=== PATIENT | female | born 1980 | race Caucasian/White ===

== ENCOUNTER 2020-04-04 19:27 | Emergency (ER) | payer SELFPAY ==
[2020-04-04 20:00] VITALS: BP 127/85; PULSE 102; RESP 15; O2SAT 99
--- NOTE | 2020-04-04 20:43 | W.ED.GENADLT ---
HPI - General Adult General: Chief complaint: General Medical Stated complaint: SORES Time Seen by Provider: 04/04/20 20:24 History of Present Illness: HPI narrative: Patient state hotel 3 weeks ago developed sores now they are scratch a lot abdomen said there is seen in what appear to be scabies coming out and he father looked in her microscope MD complaint: Sores Onset (ago): day(s) Associated symptoms: Deny chest pain, dyspnea, headache(s), nausea, rash or vomiting Review of Systems Const: Denies: fever(s), chills or body aches Eyes: Denies: change in vision or blurry vision ENMT: Denies: throat pain or nasal congestion Card: Denies: chest pain or dyspnea on exertion Resp: Denies: dyspnea, productive cough or non-productive cough GI: Denies: abdominal pain, nausea or vomiting Musc: Denies: extremity pain Skin/Breast: Reports: other (Sores scattered about arms hands legs); Denies: rash Neuro: Denies: headache(s) Psych: Denies: anxiety or depression Chau/Lymph: Denies: easy bruising [facility] ED Female Reproductive History: Date of last menstrual period: 03/15/20 Physical Exam Const: COMMON NORMALS: no acute distress, average body habitus and patient oriented x3 HENMT: COMMON NORMALS: normocephalic HEAD & SCALP: normal to inspection and normocephalic FACE & SINUS: normal facial exam Eye: COMMON NORMALS: conjunctivae normal GENERAL EYE: appearance normal, both eyes and all related structures CONJUNCTIVA: Yes conjunctivae normal Neck/C-Spine: COMMON NORMALS: no JVD Chest: COMMONS NORMALS: normal inspection of the chest Resp: COMMON NORMALS: normal respiratory effort and clear to auscultation bilaterally AUSCULTATION: clear to auscultation bilaterally Cardio: COMMON NORMALS: no JVD, regular rate and regular rhythm RATE: regular rate RHYTHM: regular rhythm GI: COMMON NORMALS: Normal to inspection, nondistended, normoactive bowel sounds present Extremity: COMMON NORMALS: normal to inspection and full ROM Neuro: COMMON NORMALS: patient oriented x3 Skin: NARRATIVE SKIN EXAM: Patient has open macular areas apparently he is dug in mechanically there scattered about shoulders arms hands Course Vital Signs: Vital signs: Vital Signs Pulse Rate 102 H 04/04/20 20:00 Respiratory Rate 15 04/04/20 20:00 Blood Pressure 127/85 04/04/20 20:00 Pulse Oximetry 99 04/04/20 20:00 Discharge Plan Discharge Patient Disposition: Home Clinical Impression: Scabies Condition: Stable Prescriptions: New permethrin 5 % cream 1 applic TOPICAL Q14D Qty: 60 RF: 0 albendazole 200 mg tablet 400 mg PO DAILY 7 Days Qty: 2 RF: 0 Discharge Orders: Discharge Order (Routine); Ordered 04/04/20 Ordered By: Rasheed Alanis Referrals: Juan M Gray MD [Primary Care Provider] - Discharge Diet: Usual diet Discharge Activity: Resume usual activity Patient Instructions: Scabies (ED) Coding Level of Care Code ED Inspector [employer] for Robert Ohara
[2020-04-04 20:57] VITALS: PULSE 68; RESP 16; O2SAT 98
== END 2020-04-04 20:58 | disposition home or self-care (01) ==
LOC: ER 20:38
PROVIDERS: Emergency Provider Nurse Practitioner Family; PCP Family Medicine
DX: B86 Scabies (principal)
CPT/HCPCS: 12345; 99282

== ENCOUNTER → 2023-02-09 11:21 | Outpatient (BNVA) | payer BC, SELFPAY | PROVIDERS: PCP Nurse Practitioner Family; Visit Provider Nurse Practitioner Family | DX: M25.50 Pain in unspecified joint (principal); R63.1 Polydipsia; G51.0 Bell's palsy | CPT/HCPCS: 80053; 85025; 86038; 86140; 86431 ==

== ENCOUNTER 2024-06-26 17:48 | Emergency (ER) | payer BC, SELFPAY ==
[2024-06-26 17:50] VITALS: BP 142/83; PULSE 103; RESP 18; TEMP 36.7; O2SAT 96; BMI 21.5
[2024-06-26] MEDS: dexamethasone 10 mg/mL INJ IM (19:32)
[2024-06-26] MEDS: sulfamethoxazole-trimeth DS 160-800 mg Tablet 1 TAB PO (19:33)
[2024-06-26 19:42] VITALS: BP 149/78; PULSE 98; O2SAT 96
--- NOTE | 2024-06-26 19:44 | ED_ITS ---
HPI - Skin/Abscess/Foreign Bdy General: Chief complaint: Skin/Abscess/Foreign Body Stated complaint: whole body rash Time Seen by Provider: 06/26/24 17:57 Source: patient Mode of arrival: ambulatory Limitations: no limitations History of Present Illness: Patient is a 43-year-old female presenting to the emergency department with rash to face and bilateral upper extremities that she has noticed over the past few days. Not overtly itchy or painful, but she is concerned due to the amount of spreading. She is reporting that the rash is papular, no other systemic symptoms reported. No shortness of breath, chest pain, or other symptoms. Has not taken anything for his symptoms. MD complaint: rash Onset (ago): day(s) Tetanus up to date: yes Location: face, LUE and RUE Relieving factors: none Exacerbating factors: none Context: none Associated symptoms: Deny chills, fever(s), nausea or vomiting Related Data Previous Rx's Medication Instructions Recorded mupirocin 2 % topical ointment 1 applic topical BID #15 grams 06/26/24 prednisone 20 mg tablet 60 mg (3 x 20 mg) PO ONCE 5 days 06/26/24 #15 tabs sulfamethoxazole 800 1 tab PO BID 7 days #14 tabs 06/26/24 mg-trimethoprim 160 mg tablet (Bactrim DS) Allergies Allergy/AdvReac Type Severity Reaction Status Date / Time No Known Allergies Allergy Verified 02/09/23 10:43 Review of Systems General: Reports: 10 or more systems reviewed and unremarkable except in HPI and below Const: Denies: fever(s) or chills Card: Denies: chest pain Resp: Denies: dyspnea GI: Denies: abdominal pain, nausea, vomiting or diarrhea Musc: Denies: extremity pain or joint pain Skin/Breast: Reports: rash; Denies: skin pain, skin tenderness or new lesions Neuro: Denies: headache(s) PFSH ED PFSH: Family History Mother Rheumatoid arthritis Lung disease Hyperlipidemia Hypertension Cancer Father Parkinson disease Lung disease Denies family history of Diabetes CAD (coronary artery disease) Chronic kidney disease (CKD) Stroke Social History Smoking and tobacco/nicotine status: current every day tobacco/nicotine user cigarettes [ Other cigarette details: plus nicotine pouches] Quit status (tobacco/nicotine): has tried quititng Alcohol intake: former Substance/Drug Use: never Adopted: No Household members: spouse Housing: House Marital status: service: No Current occupational status: unemployed Physical Exam Const: COMMON NORMALS: no acute distress, average body habitus, patient oriented x3, no limitations, healthy appearing, alert and well nourished HENMT: COMMON NORMALS: normocephalic and atraumatic HEAD & SCALP: normocephalic and atraumatic Neck/C-Spine: COMMON NORMALS: full ROM, no lymphadenopathy, supple and no meningeal signs Resp: COMMON NORMALS: normal respiratory effort, No use of accessory muscles and clear to auscultation bilaterally AUSCULTATION: clear to auscultation bilaterally Cardio: COMMON NORMALS: regular rate and regular rhythm RATE: regular rate RHYTHM: regular rhythm Extremity: COMMON NORMALS: full ROM and capillary refill normal Neuro: COMMON NORMALS: patient oriented x3 SENSORIUM/ORIENTATION: Yes alert MENINGEAL SIGNS: Yes no meningeal signs Skin: COMMON NORMALS: turgor normal NARRATIVE SKIN EXAM: Papular rash to bilateral upper extremities, and face. Does not appear pruritic. No active bleeding or oozing. GENERAL SKIN EXAM: turgor normal Course Vital Signs: Vital signs: Vital Signs Temperature 98.0 F 06/26/24 17:50 Pulse Rate 98 06/26/24 19:42 Respiratory Rate 18 06/26/24 17:50 Blood Pressure 149/78 06/26/24 19:42 Pulse Oximetry 96 06/26/24 19:42 Oxygen Delivery Me thod Room Air 06/26/24 17:50 MDM - Skin/Abscess/Foreign Bdy Medicial Decision Making Unknown the etiology of this rash, does not appear to be a contact dermatitis and certainly does not appear to be a scabies rash. This could potentially be a drug rash, will refer to dermatology, however prior to this we will try to treat with steroids and antibiotic therapy. All other questions and concerns addressed. There were no systemic physical exam findings or symptoms to report that would warrant further workup here. No radiology studies performed this visit Discharge Plan Discharge Patient Disposition: Home Clinical Impression: Rash Condition: Stable Prescriptions: New prednisone 20 mg tablet 60 mg PO ONCE 5 Days Qty: 15 0RF sulfamethoxazole-trimethoprim [Bactrim DS] 800-160 mg tablet 1 tab PO BID 7 Days Qty: 14 0RF mupirocin 2 % ointment 1 applic topical BID Qty: 15 0RF Discharge Orders: Discharge ED (Routine); Ordered 06/26/24 Ordered By: Francis Silva Referrals: Yolis Rowe FNP [Primary Care Provider] - Activity Restrictions/Additional Instructions: Follow-up with dermatology. Take Bactrim and apply bacitracin as prescribed. Also take prednisone. Return with any new or worsening. Coding Level of Care Code ED Construction Equipment Operator for Robert Ohara
--- NOTE | 2024-06-27 11:42 | DCPLANNER ---
messaged dermatology for er f/u
== END 2024-06-26 19:47 | disposition home or self-care (01) ==
PROVIDERS: Emergency Provider Physician Assistant; PCP Nurse Practitioner Family
DX: R21 Rash and other nonspecific skin eruption (principal)
CPT/HCPCS: 96372; 99284; J1100

== ENCOUNTER 2025-01-04 19:48 | Emergency (ER) | payer MEDICAID, SELFPAY ==
[2025-01-04 19:57] VITALS: BP 149/87; PULSE 91; RESP 14; TEMP 36.7; O2SAT 100
--- NOTE | 2025-01-04 20:40 | ED_ITS ---
HPI - Skin/Abscess/Foreign Bdy General: Chief complaint: Skin/Abscess/Foreign Body Stated complaint: Rash Chest Face arms ands hands Time Seen by Provider: 01/04/25 19:52 Source: patient Mode of arrival: ambulatory Limitations: no limitations History of Present Illness: Patient is a 44-year-old female presents emergency department complaining of a rash for a week. She states it is to her chest, face, and into her hands and she believes she has scabies. Denies any known contact exposure. States her daughter is having similar symptoms. Notes rash has been itching, not painful. No systemic symptoms reported. Vitals unremarkable at this time. MD complaint: rash Onset (ago): week(s) (1) Location: generalized Severity: mild Quality: pruritic Pain Consistency: constant Relieving factors: none Exacerbating factors: none Context: other (Daughter has same symptoms) Associated symptoms: Deny chills, fever(s), nausea or vomiting Treatments prior to arrival: none Related Data Previous Rx's ?Medication ?Instructions ?Recorded mupirocin 2 % topical ointment 1 applic topical BID #1 5 grams 06/26/24 permethrin 5 % topical cream 1 applic topical Q14D 2 d oses #60 01/04/25 grams Allergies Allergy/AdvReac Type Severity Reaction Status Date / Time No Known Allergies Allergy Verified 01/04/25 19:59 Review of Systems General: Reports: 10 or more systems reviewed and unremarkable except in HPI and below Const: Denies: fever(s) or chills Card: Denies: chest pain Resp: Denies: dyspnea GI: Denies: abdominal pain, nausea, vomiting or diarrhea Musc: Denies: extremity pain or joint pain Skin/Breast: Reports: rash and pruritus; Denies: skin pain, skin tenderness or new lesions Neuro: Denies: headache(s) PFSH ED PFSH: Family History Mother Rheumatoid arthritis Lung disease Hyperlipidemia Hypertension Cancer Father Parkinson disease Lung disease Denies family history of Diabetes CAD (coronary artery disease) Chronic kidney disease (CKD) Stroke Social History Smoking and tobacco/nicotine status: current every day tobacco/nicotine user cigarettes [ Other cigarette details: plus nicotine pouches] Quit status (tobacco/nicotine): has tried quititng Alcohol intake: former Substance/Drug Use: never Adopted: No Household members: spouse Housing: House Marital status: service: No Current occupational status: unemployed Physical Exam Const: COMMON NORMALS: no acute distress, average body habitus, patient oriented x3, no limitations, healthy appearing, alert and well nourished HENMT: COMMON NORMALS: normocephalic and atraumatic HEAD & SCALP: normocephalic and atraumatic Neck/C-Spine: COMMON NORMALS: full ROM, no lymphadenopathy, supple and no meningeal signs Resp: COMMON NORMALS: normal respiratory effort, No use of accessory muscles and clear to auscultation bilaterally AUSCULTATION: clear to auscultation bilaterally Cardio: COMMON NORMALS: regular rate and regular rhythm RATE: regular rate RHYTHM: regular rhythm Extremity: COMMON NORMALS: full ROM and capillary refill normal Neuro: COMMON NORMALS: patient oriented x3 SENSORIUM/ORIENTATION: Yes alert MENINGEAL SIGNS: Yes no meningeal signs Skin: COMMON NORMALS: no wounds and turgor normal NARRATIVE SKIN EXAM: Erythematous rash to chest and face. There is also rash to her bilateral hands, and there does appear to be linear burrowing between her digits. Evidence of lichenification from itching. GENERAL SKIN EXAM: turgor normal Course Vital Signs: Vital signs: Vital Signs Temperature 98.0 F 01/04/25 19:57 Pulse Rate 91 01/04/25 19:57 Respiratory Rate 14 01/04/25 19:57 Blood Pressure 149/87 01/04/25 19:57 Pulse Oximetry 100 01/04/25 19:57 Oxygen Delivery Me thod Room Air 01/04/25 19:57 MDM - Skin/Abscess/Foreign Bdy Medicial Decision Making Patient presenting with clinical signs and symptoms of scabies, will treat with permethrin at home. Informed her of other measures to take and discharge at this time. Return precautions given. No radiology studies performed this visit Discharge Plan Discharge Patient Disposition: Home Clinical Impression: Scabies Condition: Stable Prescriptions: New permethrin 5 % cream 1 applic topical Q14D Qty: 60 0RF Rx Instructions: apply second treatment 14 days after first treatment if live lice remain No Action mupirocin 2 % ointment 1 applic topical BID Qty: 15 0RF Discharge Orders: Discharge ED (Routine); Ordered 01/04/25 Ordered By: Francis Silva Referrals: Yolis Rowe FNP [Primary Care Provider, Family Practice] Patient Instructions: Scabies (ED) Activity Restrictions/Additional Instructions: Apply the permethrin as instructed. Please see the attached patient instructions for further education. Please wash all of your sheets and laundry in hot water. Return with any new or worsening, follow-up with regular doctor. Print Language: American Coding Level of Care Code ED Care Partner for Robert Ohara
== END 2025-01-04 20:32 | disposition home or self-care (01) ==
PROVIDERS: Emergency Provider Physician Assistant; PCP Nurse Practitioner Family
DX: B86 Scabies (principal)
CPT/HCPCS: 99283

== ENCOUNTER 2025-01-19 19:24 | Emergency (ER) | payer MEDICAID, SELFPAY ==
[2025-01-19 19:55] VITALS: BP 117/72; PULSE 93; RESP 16; TEMP 36.7; O2SAT 95
--- NOTE | 2025-01-19 20:43 | W.ED.SKABFB ---
HPI - Skin/Abscess/Foreign Bdy General: Chief complaint: Skin/Abscess/Foreign Body Stated complaint: Rash Time Seen by Provider: 01/19/25 20:01 Source: patient Mode of arrival: ambulatory Limitations: no limitations History of Present Illness: Patient is a 44-year-old female that presents to the emergency department with an itchy rash on her back, face, arms and legs. She states she was treated for scabies about 3 weeks ago but the symptoms have not resolved. Her daughter has similar symptoms. She denies any fever or chills. She denies any exposure to new soaps, detergents, fabric softeners, medications. She states nothing has been making the symptoms significantly better. She states she stopped using her regular detergent and switch to a different 1 but that has not helped the symptoms. She has some redness around some of the areas that she has scratched. She states she cannot take Benadryl because it makes her very sleepy. She presents to the emergency department for further evaluation and treatment. MD complaint: rash Associated symptoms: Deny chills, fever(s), nausea or vomiting Related Data Previous Rx's ?Medication ?Instructions ?Recorded mupirocin 2 % topical ointment 1 applic topical TID #22 grams 01/19/25 (Centany) prednisone 20 mg tablet 40 mg (2 x 20 mg) PO DAILY 5 days 01/19/25 #10 tabs Allergies Allergy/AdvReac Type Severity Reaction Status Date / Time No Known Allergies Allergy Verified 01/04/25 19:59 Review of Systems General: Reports: 10 or more systems reviewed and unremarkable except in HPI and below Const: Denies: fever(s) or chills Eyes: Denies: change in vision or eye redness ENMT: Denies: throat pain or ear or mastoid pain Card: Denies: chest pain, palpitations or edema Resp: Denies: dyspnea, productive cough, non-productive cough or wheezing GI: Denies: abdominal pain, nausea or vomiting : Denies: flank pain, difficulty voiding or dysuria Musc: Denies: neck pain, back pain or joint pain Skin/Breast: Reports: rash, pruritus, erythema and sores Neuro: Denies: headache(s), numbness in extremities or weakness in extremities Psych: Denies: anxiety Endo: Denies: polyuria or polydipsia Chau/Lymph: Denies: easy bruising, easy bleeding or petechiae All/Imm: Denies: urticaria, throat swelling or tongue swelling PFSH ED PFSH: Medical History (Updated 01/19/25 @ 21:32 by MICHELLE Dominique) History of cataract Surgical History (Updated 01/19/25 @ 21:32 by MICHELLE Dominique) Hx of cataract surgery bilateral Hx of section x2 Family History Mother Rheumatoid arthritis Lung disease Hyperlipidemia Hypertension Cancer Father Parkinson disease Lung disease Denies family history of Diabetes CAD (coronary artery disease) Chronic kidney disease (CKD) Stroke Social History Smoking and tobacco/nicotine status: current every day tobacco/nicotine user cigarettes [ Other cigarette details: plus nicotine pouches] Quit status (tobacco/nicotine): has tried quititng Alcohol intake: former Substance/Drug Use: never Adopted: No Household members: spouse Housing: House Marital status: service: No Current occupational status: unemployed Physical Exam Const: COMMON NORMALS: no acute distress and alert GENERAL APPEARANCE: cooperative ORIENTATION/CONSCIOUSNESS: Yes awake HENMT: COMMON NORMALS: normocephalic, atraumatic, external ears normal and Normal external nose present HEAD & SCALP: normocephalic and atraumatic FACE & SINUS: other (The patient does have a faint, scabbed lesion on the forehead) NOSE: Normal external nose present EXTERNAL EAR: Yes external ears normal MOUTH: Normal oral and palatal mucosa present Eye: COMMON NORMALS: conjunctivae normal CONJUNCTIVA: Yes conjunctivae normal Neck/C-Spine: COMMON NORMALS: full ROM and no lymphadenopathy Lymph: LYMPHATIC: no lymphadenopathy noted Resp: COMMON NORMALS: normal respiratory effort, No retractions and clear to auscultation bilaterally AUSCULTATION: clear to auscultation bilaterally, no crackles, no rales, no rhonchi and no wheezes Cardio: COMMON NORMALS: regular rate and regular rhythm RATE: regular rate RHYTHM: regular rhythm Back/Pelvis: COMMON NORMALS: no thoracic nor lumbar tenderness and thoraco-lumbar ROM normal Extremity: COMMON NORMALS: no calf tenderness and no pedal edema NARRATIVE EXTREMITY EXAM: Patient does have some excoriated areas on the bilateral upper extremities with some surrounding erythema concerning for possible cellulitis. Neuro: SENSORIUM/ORIENTATION: Yes alert Psych: COMMON NORMALS: cooperative and speech normal ATTITUDE: Yes calm SPEECH: Yes normal speech Skin: NARRATIVE SKIN EXAM: Patient does have some excoriated areas on her bilateral upper extremities with some erythema surrounding some of these. This is concerning for possible early cellulitis. GENERAL SKIN EXAM: erythema (Surrounding some of the excoriated areas on her bilateral upper extremities) and no petechiae Course Vital Signs: Vital signs: Vital Signs Temperature 98.1 F 01/19/25 19:55 Pulse Rate 93 01/19/25 19:55 Respiratory Rate 16 01/19/25 19:55 Blood Pressure 117/72 01/19/25 19:55 Pulse Oximetry 95 01/19/25 19:55 Oxygen Delivery Me thod Room Air 01/19/25 19:55 MDM - Skin/Abscess/Foreign Bdy Medicial Decision Making Patient was advised of the exam findings. She has used permethrin cream as directed with no improvement in the symptoms. I think this is some other kind of dermatitis with some developing cellulitis to the excoriated areas. I recommended she use the [id number] Claritin or Zyrtec for itching. She was provided with a prescription for mupirocin ointment to use as directed for the cellulitis as well as some prednisone to help with the itching. I recommended close follow-up with a primary care provider for further evaluation and treatment and return to the emergency department with any worsening symptoms such as fever, red streaking, pus draining etc. The patient expressed understanding. Differential Diagnosis Likely viral exanthem, urticaria, cellulitis and impetigo No radiology studies performed this visit Critical Care Time Critical Care Time: Critical Care Time: No Discharge Plan Discharge Patient Disposition: Home Clinical Impression: Dermatitis Cellulitis Qualifiers: Site of cellulitis: extremity Site of cellulitis of extremity: upper extremity Laterality: unspecified laterality Qualified Code(s): L03.119 - Cellulitis of unspecified part of limb Condition: Stable Prescriptions: New prednisone 20 mg tablet 40 mg PO DAILY 5 Days Qty: 10 0RF mupirocin [Centany] 2 % ointment 1 applic topical TID Qty: 22 0RF Discontinued mupirocin 2 % ointment 1 applic topical BID Qty: 15 0RF permethrin 5 % cream 1 applic topical Q14D Qty: 60 0RF Rx Instructions: apply second treatment 14 days after first treatment if live lice remain Discharge Orders: Discharge ED (Routine); Ordered 01/19/25 Ordered By: Patricio Corrigan Discharge Diet: Usual diet Discharge Activity: Resume usual activity Patient Instructions: Cellulitis (ED), Dermatitis (ED), Opioid Safety, Pain Management Activity Restrictions/Additional Instructions: Use the medications as directed. Your prescription was sent electronically to the [facility] pharmacy in [place]. [id number] Zyrtec or Claritin as directed for itching. Follow-up with the primary care provider in 1 week for recheck. Return to the emergency department with any worsening symptoms such as fever, red streaking, pus draining or any other worsening symptoms. Print Language: Italian Coding Level of Care Code ED Business Development Assistant for Robert Ohara
[2025-01-19] MEDS: predniSONE 20 mg Tablet 40 MG PO (21:39)
== END 2025-01-19 21:39 | disposition home or self-care (01) ==
PROVIDERS: Emergency Provider Physician Assistant
DX: L03.119 Cellulitis of unspecified part of limb (principal); F17.210 Nicotine dependence, cigarettes, uncomplicated; F17.220 Nicotine dependence, chewing tobacco, uncomplicated; L30.9 Dermatitis, unspecified
CPT/HCPCS: 12345; 99283; J7512